=== PATIENT | female | born 1975 | race Caucasian/White ===

== ENCOUNTER → 2016-10-31 | Outpatient (CLI) | payer OTHER ==
[~2016-10-31] MED LIST: /HCTZ25TA PO; /MESA40TAB PO; ACET25TA8 PO; BUDE3CAP PO; CIPR500T89 PO; COLA50CA3 PO; DULO30CA PO; ENOX40IN3 SC; FAMO20TA PO; FLAG500T PO; FLINCHW5 PO; HUMI40KI2 SC; HYDR1TAB97 PO; IBUP600T26 PO; INFL10VL IV; LINZ145C PO; LISI20TA3 PO; LYRI75CA PO; METO50TA2 PO; MULTCAP PO; NORC5TAB PO; NUCY150T PO; OMEP40CA2 PO; PRED20TA PO; PRIL40CA PO; PRIN10TA PO; ROPI0.5T PO; SIME180C PO; SOMA350T PO; TYLE325T5 PO; VICO5TAB PO; VICO5TAB16 PO; VITA250L PO; calcium with D OR; nucynta OR; omeprazole OR; vitamin B12 OR
--- NOTE | 2016-11-13 02:08 | ECWPNPC ---
PATIENT NAME: MELY KESSLER : 1975 GENDER: FEMALE VISIT DATE: 10/31/2016 DISCHARGE DATE: 10/31/16 1543 VISIT LOCKED DATE TIME: PHYSICIAN: ILDEFONSO CORONADO RESOURCE: ILDEFONSO CORONADO REASON FOR APPOINTMENT 1. FOLLOWUP HISTORY OF PRESENT ILLNESS HISTORY OF PRESENT ILLNESS: PAIN THE PATIENT DESCRIBES THE PAIN... THE PATIENT DESCRIBES THE PAIN... THE PATIENT DESCRIBES THE PAIN... THE PATIENT DESCRIBES THE PAIN... THE PATIENT DESCRIBES THE PAIN... HERE FOR F/U OF CHRONIC GENERALIZED BACK PAIN.HX OF CERVICAL FUSION WITH DR. MARTINEZ ON .REPORTS SIGNIFICANT REDUCTION IN LEFT ARM AND NECK PAIN.THEY ARE EVALUATING LOW BACK AND SENDING HER TO ORTHOPEDIC MD FOR LEFT KNEE PAIN.REPORTING SEVERE ONSET OF LEFT LBP RADIATES INTO LEFT BUTTOCK PAST 7 DAYS.DIFFICULTY SITTING ON LEFT BUTTOCK.GETTING IN AND OUT OF CAR AGGREVATES PAIN. DISCUSSED MEDICINE AND TREATMENT OPTIONS. 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 FALL RISK SCREENING: SCREENING :NO FALLS IN THE PAST YEAR CURRENT MEDICATIONS TAKING REMICADE 100 MG SOLUTION RECONSTITUTED INTRAVENOUS EVER 8 WEEKS TAKING OMEPRAZOLE 20 MG CAPSULE DELAYED RELEASE 1 TAB ORALLY ONCE A DAY TAKING MULTI-VITAMIN/IRON TABLET ORALLY TAKING VITAMIN B 12 250 MCG LOZENGE ORALLY TAKING CALCIUM 600 MG TABLET 1 TABLET WITH MEALS ORALLY TWICE A DAY TAKING TYLENOL 325 MG TABLET 1 TABLET NEEDED ORALLY EVERY 6 HRS TAKING NUCYNTA ER 100 MG TABLET EXTENDED RELEASE 12 HOUR 1 CAP(S) ORALLY BIDMDD2 TAKING NORCO 5-325 MG TABLET 1 ORALLY [id number] TAKING ROPINIROLE HCL 0.5 MG TABLET 1PO 2HOURS PRIOR TO BED ORALLY ONCE A DAY TAKING CYCLOBENZAPRINE HCL 10 MG TABLET 1 TABLET ORALLY THREE TIMES A DAY NOT-TAKING VICODIN 5-500 MG TABLET 1 TABLET NEEDED ORALLY EVERY 6 HRS NOT-TAKING HUMIRA PEN 40 MG/0.8ML KIT 0.8 SUBCUTANEOUS NOT-TAKING LYRICA 75 MG CAPSULE 1 CAPSULE ORALLY TWICE A DAY NOT-TAKING MOTRIN IB 200 MG TABLET 1 TABLET NEEDED ORALLY EVERY 6 HRS NOT-TAKING LEVAQUIN 500 MG TABLET 1 TABLET ORALLY ONCE A DAY MEDICATION LIST REVIEWED AND RECONCILED WITH THE PATIENT ALLERGIES PENICILLIN (FOR ALLERGIES USE ONLY): HIVES: SIDE EFFECTS AMOXICILLIN: HIVES: SIDE EFFECTS CECLOR: SWELLING: SIDE EFFECTS KEFLEX: VOMITING: SIDE EFFECTS TETRACYCLINE HCL: HIVES: SIDE EFFECTS SOCIAL HISTORY GENERAL: TOBACCO USE ARE YOU A:NONSMOKER LEARNING BARRIERS / SPECIAL NEEDS ORIENTED TO PLAN OF CARE: PATIENT, PAIN MANAGEMENT PATIENT, ORIENTED TO PLAN OF CARE: PATIENT, PAIN MANAGEMENT PATIENT. NEW PATIENT PAIN DIARY TODAY'S VISITNOTES FROM 0-10, WHAT LEVEL IS YOUR PAIN TODAY?0 PAIN CLINIC PFS, CLERGY, PUBLIC HEALTH REFERRALS PFS REFERRAL NEEDED?NO CLERGY REFERRAL NEEDED?NO PUBLIC HEALTH REFERRAL NEEDED?NO WAS THE PROVIDER NOTIFIED OF ANY PERTINENT INFO?NO PFS REFERRAL NEEDED?NO CLERGY REFERRAL NEEDED?NO PUBLIC HEALTH REFERRAL NEEDED?NO WAS THE PROVIDER NOTIFIED OF ANY PERTINENT INFO?NO REVIEW OF SYSTEMS CONSTITUTIONAL: ANY CHANGE IN YOUR MEDICAL CONDITION? NO . CHILLS NO . FEVER NO . INFECTION: DO YOU HAVE NEW INFECTIONS? NO . DO YOU HAVE HISTORY OF MRSA? NO . MUSCULOSKELETAL: ANY NEW PATTERNS OF PAIN OR NUMBNESS? YES-NEW LEFT HIP AND BUTTOCK AREA MUSCLE SPASM SHOOTING DOWN THE LEG . GASTROENTEROLOGY: ANY NEW CHANGE IN BOWEL CONTROL? NO . GENITOURINARY: ANY NEW CHANGE IN BLADDER CONTROL? NO . IS THERE A CHANCE YOU COULD BE ? NO . HEMATOLOGY/LYMPH: DO YOU TAKE ANY BLOOD THINNERS? (FOR EXAMPLE- COUMADIN, PLAVIX, AGGRENOX, PLATEL, PRADAXA, OR XARELTO) NO . WHEN WAS YOUR LAST DOSE? DATE: TIME: . NEUROLOGY: HAVE YOU FALLEN IN THE PAST 6 MONTHS? NO . ANY NEW EXTREMITY NUMBNESS OR WEAKNESS? NO . CARDIOLOGY: DO YOU HAVE A PACEMAKER OR DEFIBRILLATOR? NO . RESPIRATORY: HAVE YOU BEEN SICK IN THE PAST WEEK? NO . FEVER NO . FLU LIKE SYMPTOMS? NO . COUGH NO . INTEGUMENTARY: DO YOU HAVE ANY RASHES OR OPEN SORES? NO . ALLERGIC/IMMUNO: ARE YOU ALLERGIC TO SHELLFISH OR IV DYE? NO . ANY NEW ALLERGIES? NO . PSYCHIATRIC: DO YOU HAVE THOUGHTS OF HURTING YOURSELF OR SOMEONE ELSE? NO . ARE YOU ABUSED, NEGLECTED, OR IN AN UNSAFE ENVIRONMENT? NO . ENDOCRINOLOGY: ARE YOU DIABETIC? NO . OTHER: DO YOU NEED ANY PRESCRIPTIONS? NO . IF YES, PLEASE LIST: ____ . ANY NEW PROBLEMS WITH YOUR MEDICATIONS? NO . WHEN DID YOU LAST EAT? ____ . WHEN DID YOU LAST DRINK? ____ . WHAT DID YOU LAST DRINK? ____ . NAME OF PERSON DRIVING YOU HOME? ____ . DO YOU HAVE ANY OTHER QUESTIONS OR CONCERNS NO . REVIEWED BY: PROVIDER: ILDEFONSO PORTILLO . VITAL SIGNS WT 160 LBS, HT 66 IN, BMI 25.82 INDEX, BP 149/84 MM HG, HR 73 /MIN, RR 16 /MIN, TEMP 96.0 F, OXYGEN SAT % 99, NA INITIALS TL 1451, REVIEWED BY: AM. EXAMINATION GENERAL EXAMINATION: LUNGS:LUNG SOUNDS ARE CLEAR. HEART:HEART RATE REGULAR. MUSCULOSKELETAL:*, MUSCLE STRENGTH TESTING 5/5 BILATERAL UPPER AND LOWER EXTREMITY., PALPATION: NEGATIVE FOR PAIN OVER L/S SPINE. SPECIFIC POINT TENDERNESS OVER LEFT SIJ.POSITIVE ANGELA TEST LEFT LEG.. DIAGNOSTIC: . 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 BRINGS IN MEDICATIONS WHICH IS APPROPRIATE FOR WHAT WAS DISPENSED. RECENT URINE TOXICOLOGY REVIEWED. NO UNAUTHORIZED MEDICATIONS. NO ILLICIT SUBSTANCES AND PRESCRIBED MEDICATIONS WERE PRESENT. , RISKS AND BENEFITS OF NARCOTIC/OPIOD MEDICATIONS WERE REVIEWED WITH PATIENT - THIS INCLUDES BUT IS NOT LIMITED TO RISK OF DEPENDANCE/DEVELOPMENT OF ADDICTION, MOOD DISTURBANCE AND DEPRESSION, OSTEOPOROSIS, HORMONAL AND LABIDAL CHANGES, RESPIRATORY DEPRESSION AND . PATIENT IS ADVISED NOT TO DRIVE WHILE ON THESE MEDICATIONS.URINE TOX TODAY. PROCEDURE CODES FA211 ESTABILISHED PATIENT [facility] FACILITY CHARGE FOLLOW UP 2WK POST PROC. (REASON: LEFT SIJ) ELECTRONICALLY SIGNED BY BANDAR BUSH ON 11/12/2016 AT 01:21 PM EST DISCLAIMER : THIS IS A VISIT SUMMARY EXTRACTED FROM THE [employer] CHART. IT IS NOT A COPY OF THE [employer] PROGRESS NOTE. ROSCOE
== END ==
LOC: M PAIN 15:00
PROVIDERS: ATTEND Nurse Practitioner Family
DX: Z09 Encounter for follow-up examination after completed treatment for conditions other than malignant neoplasm (principal); G89.29 Other chronic pain; M53.3 Sacrococcygeal disorders, not elsewhere classified; Z88.0 Allergy status to penicillin; Z88.8 Allergy status to other drugs, medicaments and biological substances; Z79.891 Long term (current) use of opiate analgesic; Z79.899 Other long term (current) drug therapy

== ENCOUNTER 2016-11-13 12:39 | Outpatient (CLI) | payer OTHER ==
[~2016-11-13] VITALS: Ht 170.2 cm; Wt 83.0 kg
[~2016-11-13 12:39] MED LIST changes: +HYDR-3713 PO; -HYDR1TAB97 PO; +diphenhydrAMINE 25 MG CAP PO SCH
[2016-11-13] MEDS ORDERED: NS 1,000 ML IV SCH (12:45)
[2016-11-13] MEDS ORDERED: inFLIXimab INJECTION 500 MG in NS 200 ML IV ONE (13:00)
== END 2016-11-13 15:45 | disposition home or self-care (01) ==
LOC: M INFU 12:39
PROVIDERS: ATTEND Internal Medicine Gastroenterology
DX: K50.10 Crohn's disease of large intestine without complications (principal); K50.00 Crohn's disease of small intestine without complications
CPT/HCPCS: 96413; 96415; J1745

== ENCOUNTER 2017-01-17 12:16 | Outpatient (CLI) | payer OTHER ==
[~2017-01-17] VITALS: Ht 170.2 cm; Wt 83.0 kg
[2017-01-17] MEDS ORDERED: NS 1,000 ML IV SCH (12:30)
[2017-01-17] MEDS ORDERED: inFLIXimab INJECTION 500 MG in NS 200 ML IV ONE (14:00)
== END 2017-01-17 15:15 | disposition home or self-care (01) ==
LOC: M INFU 12:16
PROVIDERS: ATTEND Internal Medicine Gastroenterology
DX: K50.80 Crohn's disease of both small and large intestine without complications (principal)
CPT/HCPCS: 96413; 96415; J1745

== ENCOUNTER → 2017-03-01 | Outpatient (CLI) | payer OTHER ==
[~2017-03-01] MED LIST changes: +NORC1TAB4 PO; -NORC5TAB PO; -diphenhydrAMINE 25 MG CAP PO SCH
--- NOTE | 2017-03-20 02:18 | ECWPNPC ---
PATIENT NAME: MELY KESSLER : 1975 GENDER: FEMALE VISIT DATE: 03/01/2017 DISCHARGE DATE: 03/01/17 1147 VISIT LOCKED DATE TIME: PHYSICIAN: ILDEFONSO CORONADO RESOURCE: ILDEFONSO CORONADO REASON FOR APPOINTMENT 1. NECK AND BACK HISTORY OF PRESENT ILLNESS HISTORY OF PRESENT ILLNESS: PAIN THE PATIENT DESCRIBES THE PAIN... THE PATIENT DESCRIBES THE PAIN... THE PATIENT DESCRIBES THE PAIN... THE PATIENT DESCRIBES THE PAIN... THE PATIENT DESCRIBES THE PAIN... THE PATIENT DESCRIBES THE PAIN... HERE FOR F/U OF CHRONIC GENERALIZED BACK PAIN.HX OF CERVICAL FUSION WITH DR. MARTINEZ ON .REPORTS SIGNIFICANT REDUCTION IN LEFT ARM AND NECK PAIN.HAD LEFT HIP REPLACEMENT November. RECIEVES REMICADE INFUSION EVERY 8 WEEKS FOR CROHNS DISEASE.REPORTS OVER 100#WEIGHT LOSS PAST YEAR AFTER BARIAC SURGEY .RATING PAIN VAS 6/10.COMPLAINING OF BURNING AXIAL PAIN THAT SEEMS TO BE WORSE LATELY.MOST RECENT MRI L/S SPINE 2012. FALL RISK SCREENING: SCREENING :NO FALLS IN THE PAST YEAR CURRENT MEDICATIONS TAKING REMICADE 100 MG SOLUTION RECONSTITUTED INTRAVENOUS EVER 8 WEEKS TAKING OMEPRAZOLE 20 MG CAPSULE DELAYED RELEASE 1 TAB ORALLY ONCE A DAY TAKING MULTI-VITAMIN/IRON TABLET ORALLY TAKING VITAMIN B 12 250 MCG LOZENGE ORALLY TAKING CALCIUM 600 MG TABLET 2 TABLET WITH MEALS ORALLY TWICE A DAY TAKING TYLENOL 325 MG TABLET 1 TABLET NEEDED ORALLY EVERY 6 HRS TAKING ROPINIROLE HCL 0.5 MG TABLET 1PO 2HOURS PRIOR TO BED ORALLY BEFORE BEDTIME TAKING NORCO 5-325 MG TABLET 1 ORALLY [id number] TAKING NUCYNTA ER 100 MG TABLET EXTENDED RELEASE 12 HOUR 1 CAP(S) ORALLY BIDMDD2 NOT-TAKING CYCLOBENZAPRINE HCL 10 MG TABLET 1 TABLET ORALLY THREE TIMES A DAY NOT-TAKING VICODIN 5-500 MG TABLET 1 TABLET NEEDED ORALLY EVERY 6 HRS NOT-TAKING HUMIRA PEN 40 MG/0.8ML KIT 0.8 SUBCUTANEOUS NOT-TAKING LYRICA 75 MG CAPSULE 1 CAPSULE ORALLY TWICE A DAY NOT-TAKING MOTRIN IB 200 MG TABLET 1 TABLET NEEDED ORALLY EVERY 6 HRS NOT-TAKING LEVAQUIN 500 MG TABLET 1 TABLET ORALLY ONCE A DAY MEDICATION LIST REVIEWED AND RECONCILED WITH THE PATIENT PAST MEDICAL HISTORY CHRONES ARTHRITIS ALLERGIES PENICILLIN (FOR ALLERGIES USE ONLY): HIVES: SIDE EFFECTS AMOXICILLIN: HIVES: SIDE EFFECTS CECLOR: SWELLING: SIDE EFFECTS KEFLEX: VOMITING: SIDE EFFECTS TETRACYCLINE HCL: HIVES: SIDE EFFECTS SURGICAL HISTORY TONSILECTOMY TUBAL LIGATION GASTRIC BYPASS CERVICAL FUSION JUL 2016 LEFT HIP REPLACEMENT NOV 2016 HOSPITALIZATION/MAJOR DIAGNOSTIC PROCEDURE SEE ABOVE REVIEW OF SYSTEMS CONSTITUTIONAL: ANY CHANGE IN YOUR MEDICAL CONDITION? YES. LEFT HIP REPLACEMENT NOV 2016 . CHILLS NO . FEVER NO . INFECTION: DO YOU HAVE NEW INFECTIONS? NO . DO YOU HAVE HISTORY OF MRSA? NO . MUSCULOSKELETAL: ANY NEW PATTERNS OF PAIN OR NUMBNESS? YES, RIGHT HAND. LEFT LOWER LEG . GASTROENTEROLOGY: ANY NEW CHANGE IN BOWEL CONTROL? NO . GENITOURINARY: ANY NEW CHANGE IN BLADDER CONTROL? NO . IS THERE A CHANCE YOU COULD BE ? NO . HEMATOLOGY/LYMPH: DO YOU TAKE ANY BLOOD THINNERS? (FOR EXAMPLE- COUMADIN, PLAVIX, AGGRENOX, PLATEL, PRADAXA, OR XARELTO) NO . WHEN WAS YOUR LAST DOSE? DATE: TIME: . NEUROLOGY: HAVE YOU FALLEN IN THE PAST 6 MONTHS? NO . ANY NEW EXTREMITY NUMBNESS OR WEAKNESS? NO . CARDIOLOGY: DO YOU HAVE A PACEMAKER OR DEFIBRILLATOR? NO . RESPIRATORY: HAVE YOU BEEN SICK IN THE PAST WEEK? NO . FEVER NO . FLU LIKE SYMPTOMS? NO . COUGH NO . INTEGUMENTARY: DO YOU HAVE ANY RASHES OR OPEN SORES? NO . ALLERGIC/IMMUNO: ARE YOU ALLERGIC TO SHELLFISH OR IV DYE? NO . ANY NEW ALLERGIES? NO . PSYCHIATRIC: DO YOU HAVE THOUGHTS OF HURTING YOURSELF OR SOMEONE ELSE? NO . ARE YOU ABUSED, NEGLECTED, OR IN AN UNSAFE ENVIRONMENT? NO . ENDOCRINOLOGY: ARE YOU DIABETIC? NO . OTHER: DO YOU NEED ANY PRESCRIPTIONS? YES . IF YES, PLEASE LIST: HYDROCODONE 03/09/17 AND NUCYNTA 03/14/17 . ANY NEW PROBLEMS WITH YOUR MEDICATIONS? NO . WHEN DID YOU LAST EAT? ____ . WHEN DID YOU LAST DRINK? ____ . WHAT DID YOU LAST DRINK? ____ . NAME OF PERSON DRIVING YOU HOME? ____ . DO YOU HAVE ANY OTHER QUESTIONS OR CONCERNS NO . REVIEWED BY: PROVIDER: ILDEFONSO PORTILLO . VITAL SIGNS WT 167 LBS, HT 66 IN, BMI 26.95 INDEX, BP 116/76 MM HG, HR 92 /MIN, RR 18 /MIN, TEMP 98.8 F, OXYGEN SAT % 97, REVIEWED BY: NL. EXAMINATION GENERAL EXAMINATION: LUNGS:LUNG SOUNDS ARE CLEAR. HEART:HEART RATE REGULAR. MUSCULOSKELETAL:*, MUSCLE STRENGTH TESTING 5/5 BILATERAL UPPER AND LOWER EXTREMITY., PALPATION: POSITIVE FOR PAIN OVER L/S SPINE.POSITIVE FOR PAIN OVER PARASPINALS . DIAGNOSTIC: . 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 WITHOUT [id number] DISPOSITION & COMMUNICATION FOLLOW UP 4 WEEKS ELECTRONICALLY SIGNED BY BANDAR BUSH ON 03/19/2017 AT 04:46 PM EDT DISCLAIMER : THIS IS A VISIT SUMMARY EXTRACTED FROM THE [employer] CHART. IT IS NOT A COPY OF THE [employer] PROGRESS NOTE. ROSCOE
== END | disposition home or self-care (01) ==
LOC: M PAIN 11:00
PROVIDERS: ATTEND Nurse Practitioner Family
DX: G89.29 Other chronic pain (principal); M19.90 Unspecified osteoarthritis, unspecified site; K50.90 Crohn's disease, unspecified, without complications; Z98.84 Bariatric surgery status; Z79.899 Other long term (current) drug therapy; Z88.0 Allergy status to penicillin; Z88.1 Allergy status to other antibiotic agents

== ENCOUNTER → 2017-04-01 | Outpatient (CLI) | payer OTHER ==
--- NOTE | 2017-04-02 01:22 | ECWPNPC ---
PATIENT NAME: MELY KESSLER : 1975 GENDER: FEMALE VISIT DATE: 04/01/2017 DISCHARGE DATE: 04/01/17 1153 VISIT LOCKED DATE TIME: PHYSICIAN: ILDEFONSO CORONADO RESOURCE: ILDEFONSO CORONADO REASON FOR APPOINTMENT 1. BACK HISTORY OF PRESENT ILLNESS HISTORY OF PRESENT ILLNESS: PAIN THE PATIENT DESCRIBES THE PAIN... THE PATIENT DESCRIBES THE PAIN... THE PATIENT DESCRIBES THE PAIN... THE PATIENT DESCRIBES THE PAIN... THE PATIENT DESCRIBES THE PAIN... THE PATIENT DESCRIBES THE PAIN... THE PATIENT DESCRIBES THE PAIN... HERE FOR F/U OF CHRONIC GENERALIZED BACK PAIN.HX OF CERVICAL FUSION WITH DR. MARTINEZ ON .REPORTS SIGNIFICANT REDUCTION IN LEFT ARM AND NECK PAIN.HAD LEFT HIP REPLACEMENT November. RECIEVES REMICADE INFUSION EVERY 8 WEEKS FOR CROHNS DISEASE.REPORTS OVER 100#WEIGHT LOSS PAST YEAR AFTER BARIAC SURGEY .RATING PAIN VAS 6/10.COMPLAINING OF BURNING AXIAL PAIN THAT SEEMS TO BE WORSE LATELY.MOST RECENT MRI L/S SPINE 2012.I HAD ORDERED MRI L/S SPINE AT HER LAST VISIT BUT SHE HASNT HAD THAT DONE YET.REPORTING INCREASE IN ARM PAIN AND PARATHESIAS PAST 2 WEEKS SHE HAS BEEN MOVING AND OVERDOING. FALL RISK SCREENING: SCREENING :NO FALLS IN THE PAST YEAR CURRENT MEDICATIONS TAKING REMICADE 100 MG SOLUTION RECONSTITUTED INTRAVENOUS EVER 8 WEEKS TAKING OMEPRAZOLE 20 MG CAPSULE DELAYED RELEASE 1 TAB ORALLY ONCE A DAY TAKING MULTI-VITAMIN/IRON TABLET ORALLY TAKING VITAMIN B 12 250 MCG LOZENGE ORALLY TAKING CALCIUM 600 MG TABLET 2 TABLET WITH MEALS ORALLY TWICE A DAY TAKING TYLENOL 325 MG TABLET 1 TABLET NEEDED ORALLY EVERY 6 HRS TAKING ROPINIROLE HCL 0.5 MG TABLET 1PO 2HOURS PRIOR TO BED ORALLY BEFORE BEDTIME TAKING NORCO 5-325 MG TABLET 1 ORALLY [id number] TAKING NUCYNTA ER 100 MG TABLET EXTENDED RELEASE 12 HOUR 1 CAP(S) ORALLY BIDMDD2 NOT-TAKING CYCLOBENZAPRINE HCL 10 MG TABLET 1 TABLET ORALLY THREE TIMES A DAY NOT-TAKING VICODIN 5-500 MG TABLET 1 TABLET NEEDED ORALLY EVERY 6 HRS NOT-TAKING HUMIRA PEN 40 MG/0.8ML KIT 0.8 SUBCUTANEOUS NOT-TAKING LYRICA 75 MG CAPSULE 1 CAPSULE ORALLY TWICE A DAY NOT-TAKING MOTRIN IB 200 MG TABLET 1 TABLET NEEDED ORALLY EVERY 6 HRS NOT-TAKING LEVAQUIN 500 MG TABLET 1 TABLET ORALLY ONCE A DAY MEDICATION LIST REVIEWED AND RECONCILED WITH THE PATIENT PAST MEDICAL HISTORY CHRONES ARTHRITIS ALLERGIES PENICILLIN (FOR ALLERGIES USE ONLY): HIVES: SIDE EFFECTS AMOXICILLIN: HIVES: SIDE EFFECTS CECLOR: SWELLING: SIDE EFFECTS KEFLEX: VOMITING: SIDE EFFECTS TETRACYCLINE HCL: HIVES: SIDE EFFECTS SURGICAL HISTORY TONSILECTOMY TUBAL LIGATION GASTRIC BYPASS CERVICAL FUSION JUL 2016 LEFT HIP REPLACEMENT NOV 2016 HOSPITALIZATION/MAJOR DIAGNOSTIC PROCEDURE SEE ABOVE REVIEW OF SYSTEMS CONSTITUTIONAL: ANY CHANGE IN YOUR MEDICAL CONDITION? NO . CHILLS NO . FEVER NO . INFECTION: DO YOU HAVE NEW INFECTIONS? NO . DO YOU HAVE HISTORY OF MRSA? NO . MUSCULOSKELETAL: ANY NEW PATTERNS OF PAIN OR NUMBNESS? YES, PT STATES SHE IS MOVING, NUMBNESS IN ARMS IS WORSE . GASTROENTEROLOGY: ANY NEW CHANGE IN BOWEL CONTROL? NO . GENITOURINARY: ANY NEW CHANGE IN BLADDER CONTROL? NO . IS THERE A CHANCE YOU COULD BE ? NO . HEMATOLOGY/LYMPH: DO YOU TAKE ANY BLOOD THINNERS? (FOR EXAMPLE- COUMADIN, PLAVIX, AGGRENOX, PLATEL, PRADAXA, OR XARELTO) NO . WHEN WAS YOUR LAST DOSE? DATE: TIME: . NEUROLOGY: HAVE YOU FALLEN IN THE PAST 6 MONTHS? NO . ANY NEW EXTREMITY NUMBNESS OR WEAKNESS? NO . CARDIOLOGY: DO YOU HAVE A PACEMAKER OR DEFIBRILLATOR? NO . RESPIRATORY: HAVE YOU BEEN SICK IN THE PAST WEEK? YES, ALLERGY RELATED . FEVER NO . FLU LIKE SYMPTOMS? NO . COUGH NO . INTEGUMENTARY: DO YOU HAVE ANY RASHES OR OPEN SORES? NO . ALLERGIC/IMMUNO: ARE YOU ALLERGIC TO SHELLFISH OR IV DYE? NO . ANY NEW ALLERGIES? NO . PSYCHIATRIC: DO YOU HAVE THOUGHTS OF HURTING YOURSELF OR SOMEONE ELSE? NO . ARE YOU ABUSED, NEGLECTED, OR IN AN UNSAFE ENVIRONMENT? NO . ENDOCRINOLOGY: ARE YOU DIABETIC? NO . OTHER: DO YOU NEED ANY PRESCRIPTIONS? YES, OXYCODONE, NUCYNTA . IF YES, PLEASE LIST: ____ . ANY NEW PROBLEMS WITH YOUR MEDICATIONS? NO . WHEN DID YOU LAST EAT? ____ . WHEN DID YOU LAST DRINK? ____ . WHAT DID YOU LAST DRINK? ____ . NAME OF PERSON DRIVING YOU HOME? ____ . DO YOU HAVE ANY OTHER QUESTIONS OR CONCERNS NO . REVIEWED BY: PROVIDER: ILDEFONSO PORTILLO . VITAL SIGNS WT 171 LBS, HT 66 IN, BMI 27.60 INDEX, BP 116/66 MM HG, HR 72 /MIN, RR 18 /MIN, TEMP 98.5 F, OXYGEN SAT % 97, SAFE IN ENV? (Y/N) Y, REVIEWED BY: [id number]. EXAMINATION GENERAL EXAMINATION: LUNGS:LUNG SOUNDS ARE CLEAR. HEART:HEART RATE REGULAR. MUSCULOSKELETAL:*, MUSCLE STRENGTH TESTING 5/5 BILATERAL UPPER AND LOWER EXTREMITY., PALPATION: POSITIVE FOR PAIN OVER L/S SPINE.POSITIVE FOR PAIN OVER PARASPINALS . DIAGNOSTIC: . ASSESSMENTS LUMBAGO DUE TO DISPLACEMENT OF INTERVERTEBRAL DISC - M51.26 (PRIMARY) ARTHROPATHY - M12.9 TREATMENT LUMBAGO DUE TO DISPLACEMENT OF INTERVERTEBRAL DISC CONTINUE ROPINIROLE HCL TABLET, 0.5 MG, 1PO 2HOURS PRIOR TO BED, ORALLY, BEFORE BEDTIME REFILL NORCO TABLET, 5-325 MG, 1, ORALLY, [id number], 30 DAY(S), 90, REFILLS 0 REFILL NUCYNTA ER TABLET EXTENDED RELEASE 12 HOUR, 100 MG, 1 CAP(S), ORALLY, BIDMDD2, 30 DAY(S), 60, REFILLS 0 SMC MRI SPINE, L.S. WITHOUT [id number] NOTES: ISTOP REGISTRY REVIEWED AND DEMNOSTRATES COMPLLIANCE. BRINGS IN MEDICATIONS WHICH IS APPROPRIATE FOR WHAT WAS DISPENSED. RECENT URINE TOXICOLOGY REVIEWED. NO UNAUTHORIZED MEDICATIONS. NO ILLICIT SUBSTANCES AND PRESCRIBED MEDICATIONS WERE PRESENT. , RISKS AND BENEFITS OF NARCOTIC/OPIOD MEDICATIONS WERE REVIEWED WITH PATIENT - THIS INCLUDES BUT IS NOT LIMITED TO RISK OF DEPENDANCE/DEVELOPMENT OF ADDICTION, MOOD DISTURBANCE AND DEPRESSION, OSTEOPOROSIS, HORMONAL AND LABIDAL CHANGES, RESPIRATORY DEPRESSION AND . PATIENT IS ADVISED NOT TO DRIVE WHILE ON THESE MEDICATIONS. PROCEDURE CODES FA211 ESTABILISHED PATIENT [facility] FACILITY CHARGE DISPOSITION & COMMUNICATION FOLLOW UP 2 MONTHS ELECTRONICALLY SIGNED BY BANDAR BUSH ON 04/01/2017 AT 05:30 PM EDT DISCLAIMER : THIS IS A VISIT SUMMARY EXTRACTED FROM THE [employer] CHART. IT IS NOT A COPY OF THE [employer] PROGRESS NOTE. ROSCOE
== END ==
LOC: M PAIN 11:00
PROVIDERS: ATTEND Nurse Practitioner Family
DX: G89.29 Other chronic pain (principal); M51.26 Other intervertebral disc displacement, lumbar region; M12.9 Arthropathy, unspecified; Z98.1 Arthrodesis status; Z96.642 Presence of left artificial hip joint; K50.90 Crohn's disease, unspecified, without complications; Z98.84 Bariatric surgery status; Z88.0 Allergy status to penicillin; Z88.1 Allergy status to other antibiotic agents; Z88.8 Allergy status to other drugs, medicaments and biological substances; Z79.891 Long term (current) use of opiate analgesic; Z79.899 Other long term (current) drug therapy

== ENCOUNTER 2017-05-09 10:00 | Outpatient (CLI) | payer OTHER ==
[~2017-05-09] VITALS: Ht 170.2 cm; Wt 73.0 kg
[~2017-05-09 10:00] MED LIST changes: -METO50TA2 PO; +METO50TA7 PO; +diphenhydrAMINE 25 MG CAP PO SCH
[2017-05-09] MEDS ORDERED: NS 1,000 ML IV SCH (10:15)
[2017-05-09] MEDS ORDERED: inFLIXimab INJECTION 400 MG in NS 210 ML IV ONE (10:15)
== END 2017-05-09 13:05 | disposition home or self-care (01) ==
LOC: M INFU 10:00
PROVIDERS: ATTEND Internal Medicine Gastroenterology
DX: K50.90 Crohn's disease, unspecified, without complications (principal); Z88.0 Allergy status to penicillin; Z88.1 Allergy status to other antibiotic agents; Z79.891 Long term (current) use of opiate analgesic; Z79.899 Other long term (current) drug therapy; Z98.84 Bariatric surgery status
CPT/HCPCS: 96413; 96415; J1745

== ENCOUNTER 2017-05-20 10:43 | Outpatient (CLI) | payer OTHER ==
[~2017-05-20 10:43] MED LIST changes: -IRON65TA PO; -NUCY50TA6 PO; +diphenhydrAMINE 25 MG CAP PO SCH
[2017-05-20] MEDS ORDERED: NS 1,000 ML IV SCH (11:00)
[2017-05-20] MEDS ORDERED: inFLIXimab INJECTION 400 MG in NS 210 ML IV ONE (11:00)
== END 2017-05-20 13:30 | disposition home or self-care (01) ==
LOC: M INFU 10:43
PROVIDERS: ATTEND Internal Medicine Gastroenterology
DX: K50.90 Crohn's disease, unspecified, without complications (principal); Z79.891 Long term (current) use of opiate analgesic; Z79.899 Other long term (current) drug therapy; Z98.84 Bariatric surgery status; Z88.0 Allergy status to penicillin; Z88.1 Allergy status to other antibiotic agents; M51.26 Other intervertebral disc displacement, lumbar region
CPT/HCPCS: 72148; 96413; 96415; J1745

== ENCOUNTER → 2017-05-20 | Outpatient (CLI) | payer OTHER ==
[~2017-05-20] MED LIST changes: +IRON65TA PO; +NUCY50TA6 PO; -diphenhydrAMINE 25 MG CAP PO SCH
--- NOTE | 2017-05-20 16:35 | REP ---
REASON: Back pain with left lower extremity radicular symptoms. COMPARISON EXAMINATION: 08/24/2013 There is posterior disc space height loss and disc hydrational signal loss L3-4 to L5-S1 inclusive, increased slightly from the prior exam. The remainder of the disc spaces are well hydrated and of normal appearing height. The marrow signal is again seen to be within normal limits. There is no abnormal signal seen in the imaged portion of the spinal cord. Vertebral body height and alignment is again seen to be within normal limits. The L1-2 level. There is no change from the prior exam. There is no disc herniation or foraminal narrowing or central canal stenosis. Mild degenerative facet joint changes are seen bilaterally, status quo. At the L2-3 level there is no change. There is no disc herniation, foraminal narrowing or central canal stenosis. Mild degenerative facet joint changes are again seen bilaterally status quo. At the L3-4 level there is a broad based annular bulge with a tiny central focal subligamentous disc protrusion and a midline posterior annular rent. This is essentially unchanged. No acute disc extrusion has developed, however, the broad based bulge does cause a mild concave anterior deformity of the anterior thecal sac, possible increased slightly from the prior exam There is no foraminal stenosis or gerardo acute disc extrusion. Degenerative facet joint changes were seen again bilaterally with thickening of the ligamenta flava and the factors in concert cause mild central canal stenosis possibly increased slightly from the prior exam. At the L4-5 level there is a large asymmetric broad based annular bulge which has increased in size from the prior exam. This broad based annular bulge is seen in conjunction with a central focal subligamentous disc protrusion which causes a concave anterior deformity of the anterior thecal sac which has increased from the prior exam. Degenerative facet joint changes are seen bilaterally with thickening of the ligamentum flava and the factors in concert are causing moderate central canal stenosis which has increased from the prior exam. There is no evidence of an acute disc extrusion or gerardo foraminal narrowing. At the L5-S1 level. There is a broad based annular bulge seen in conjunction with an unchanged central disc extrusion with slight inferior migration of the extruded disc material status quo. Degenerative facet joint changes are again seen bilaterally with thickening of the ligamentum flava and the factors in concert are causing mild central canal stenosis status quo. There is also evidence of mild right foraminal stenosis without evidence of L5 foraminal nerve compression. IMPRESSION: Multilevel discogenic changes and other findings as described above. Signed by Ahmet Santiago DO 05/20/2017 07:09 P
== END ==
LOC: M RAD 14:14
PROVIDERS: ATTEND Nurse Practitioner Family
DX: M51.26 Other intervertebral disc displacement, lumbar region (principal)

== ENCOUNTER 2017-06-11 12:00 | Outpatient (CLI) | payer OTHER ==
[~2017-06-11] VITALS: Ht 170.2 cm; Wt 73.0 kg
[2017-06-11] MEDS ORDERED: inFLIXimab INJECTION 400 MG in NS 210 ML IV ONE (13:00)
[2017-06-11] MEDS ORDERED: NS 1,000 ML IV SCH (13:00)
[2017-06-11] MEDS ORDERED: IRON65TA PO (14:47)
[2017-06-11] MEDS ORDERED: NUCY50TA6 PO (14:47)
== END 2017-06-11 15:00 | disposition home or self-care (01) ==
LOC: M INFU 12:00
PROVIDERS: ATTEND Internal Medicine Gastroenterology
DX: K50.80 Crohn's disease of both small and large intestine without complications (principal); Z88.0 Allergy status to penicillin; Z88.1 Allergy status to other antibiotic agents; Z79.899 Other long term (current) drug therapy
CPT/HCPCS: 96413; 96415; J1745

== ENCOUNTER → 2017-07-10 | Outpatient (CLI) | payer OTHER ==
[~2017-07-10] MED LIST changes: +IRON65TA PO; +NUCY50TA6 PO; -diphenhydrAMINE 25 MG CAP PO SCH
--- NOTE | 2017-07-21 23:36 | ECWPNPC ---
PATIENT NAME: MELY KESSLER : 1975 GENDER: FEMALE VISIT DATE: 07/10/2017 DISCHARGE DATE: 07/10/17 1407 VISIT LOCKED DATE TIME: PHYSICIAN: ILDEFONSO CORONADO RESOURCE: ILDEFONSO CORONADO REASON FOR APPOINTMENT 1. BACK AND NECK HISTORY OF PRESENT ILLNESS HISTORY OF PRESENT ILLNESS: PAIN THE PATIENT DESCRIBES THE PAIN... THE PATIENT DESCRIBES THE PAIN... THE PATIENT DESCRIBES THE PAIN... THE PATIENT DESCRIBES THE PAIN... THE PATIENT DESCRIBES THE PAIN... THE PATIENT DESCRIBES THE PAIN... THE PATIENT DESCRIBES THE PAIN... THE PATIENT DESCRIBES THE PAIN... PAIN THE PATIENT DESCRIBES THE PAIN... THE PATIENT DESCRIBES THE PAIN... THE PATIENT DESCRIBES THE PAIN... THE PATIENT DESCRIBES THE PAIN... THE PATIENT DESCRIBES THE PAIN... THE PATIENT DESCRIBES THE PAIN... THE PATIENT DESCRIBES THE PAIN... THE PATIENT DESCRIBES THE PAIN... HERE FOR F/U OF CHRONIC GENERALIZED BACK PAIN.HX OF CERVICAL FUSION WITH DR. MARTINEZ ON .REPORTS SIGNIFICANT REDUCTION IN LEFT ARM AND NECK PAIN.HAD LEFT HIP REPLACEMENT November. RECIEVES REMICADE INFUSION EVERY 8 WEEKS FOR CROHNS DISEASE.REPORTS OVER 100#WEIGHT LOSS PAST YEAR AFTER BARIAC SURGEY .RATING PAIN VAS 6/10.COMPLAINING OF BURNING AXIAL PAIN THAT SEEMS TO BE WORSE LATELY.MOST RECENT MRI L/S SPINE 2012.I HAD ORDERED MRI L/S SPINE AT HER LAST VISIT BUT SHE HASNT HAD THAT DONE YET.REPORTING INCREASE IN ARM PAIN AND PARATHESIAS PAST 2 WEEKS SHE HAS BEEN MOVING AND OVERDOING. FALL RISK SCREENING: SCREENING :NO FALLS IN THE PAST YEAR CURRENT MEDICATIONS TAKING REMICADE 100 MG SOLUTION RECONSTITUTED INTRAVENOUS EVER 8 WEEKS TAKING OMEPRAZOLE 20 MG CAPSULE DELAYED RELEASE 1 TAB ORALLY ONCE A DAY TAKING MULTI-VITAMIN/IRON TABLET ORALLY TAKING VITAMIN B 12 250 MCG LOZENGE ORALLY TAKING CALCIUM 600 MG TABLET 2 TABLET WITH MEALS ORALLY TWICE A DAY TAKING TYLENOL 325 MG TABLET 1 TABLET NEEDED ORALLY EVERY 6 HRS TAKING ROPINIROLE HCL 0.5 MG TABLET 1PO 2HOURS PRIOR TO BED ORALLY BEFORE BEDTIME TAKING NUCYNTA ER 100 MG TABLET EXTENDED RELEASE 12 HOUR 1 CAP(S) ORALLY BIDMDD2 TAKING NORCO 5-325 MG TABLET 1 ORALLY [id number] NOT-TAKING CYCLOBENZAPRINE HCL 10 MG TABLET 1 TABLET ORALLY THREE TIMES A DAY NOT-TAKING VICODIN 5-500 MG TABLET 1 TABLET NEEDED ORALLY EVERY 6 HRS NOT-TAKING HUMIRA PEN 40 MG/0.8ML KIT 0.8 SUBCUTANEOUS NOT-TAKING LYRICA 75 MG CAPSULE 1 CAPSULE ORALLY TWICE A DAY NOT-TAKING MOTRIN IB 200 MG TABLET 1 TABLET NEEDED ORALLY EVERY 6 HRS NOT-TAKING LEVAQUIN 500 MG TABLET 1 TABLET ORALLY ONCE A DAY MEDICATION LIST REVIEWED AND RECONCILED WITH THE PATIENT PAST MEDICAL HISTORY CHRONES ARTHRITIS ALLERGIES PENICILLIN (FOR ALLERGIES USE ONLY): HIVES: SIDE EFFECTS AMOXICILLIN: HIVES: SIDE EFFECTS CECLOR: SWELLING: SIDE EFFECTS KEFLEX: VOMITING: SIDE EFFECTS TETRACYCLINE HCL: HIVES: SIDE EFFECTS SURGICAL HISTORY TONSILECTOMY TUBAL LIGATION GASTRIC BYPASS CERVICAL FUSION JUL 2016 LEFT HIP REPLACEMENT NOV 2016 HOSPITALIZATION/MAJOR DIAGNOSTIC PROCEDURE SEE ABOVE REVIEW OF SYSTEMS REVIEWED BY: PROVIDER: ILDEFONSO PORTILLO . CONSTITUTIONAL: ANY CHANGE IN YOUR MEDICAL CONDITION? NO . CHILLS NO . FEVER NO . INFECTION: DO YOU HAVE NEW INFECTIONS? NO . DO YOU HAVE HISTORY OF MRSA? NO . MUSCULOSKELETAL: ANY NEW PATTERNS OF PAIN OR NUMBNESS? NO . GASTROENTEROLOGY: ANY NEW CHANGE IN BOWEL CONTROL? NO . GENITOURINARY: ANY NEW CHANGE IN BLADDER CONTROL? NO . IS THERE A CHANCE YOU COULD BE ? NO . HEMATOLOGY/LYMPH: DO YOU TAKE ANY BLOOD THINNERS? (FOR EXAMPLE- COUMADIN, PLAVIX, AGGRENOX, PLATEL, PRADAXA, OR XARELTO) NO . WHEN WAS YOUR LAST DOSE? DATE: TIME: . NEUROLOGY: HAVE YOU FALLEN IN THE PAST 6 MONTHS? NO . ANY NEW EXTREMITY NUMBNESS OR WEAKNESS? NO . CARDIOLOGY: DO YOU HAVE A PACEMAKER OR DEFIBRILLATOR? NO . RESPIRATORY: HAVE YOU BEEN SICK IN THE PAST WEEK? NO . FEVER NO . FLU LIKE SYMPTOMS? NO . COUGH NO . INTEGUMENTARY: DO YOU HAVE ANY RASHES OR OPEN SORES? NO . ALLERGIC/IMMUNO: ARE YOU ALLERGIC TO SHELLFISH OR IV DYE? NO . ANY NEW ALLERGIES? NO . PSYCHIATRIC: DO YOU HAVE THOUGHTS OF HURTING YOURSELF OR SOMEONE ELSE? NO . ARE YOU ABUSED, NEGLECTED, OR IN AN UNSAFE ENVIRONMENT? NO . ENDOCRINOLOGY: ARE YOU DIABETIC? NO . OTHER: DO YOU NEED ANY PRESCRIPTIONS? YES, NUCYNTA, HYDROCODONE . IF YES, PLEASE LIST: ____ . ANY NEW PROBLEMS WITH YOUR MEDICATIONS? NO . WHEN DID YOU LAST EAT? ____ . WHEN DID YOU LAST DRINK? ____ . WHAT DID YOU LAST DRINK? ____ . NAME OF PERSON DRIVING YOU HOME? ____ . DO YOU HAVE ANY OTHER QUESTIONS OR CONCERNS NO . VITAL SIGNS WT 174 LBS, HT 66 IN, BMI 28.08 INDEX, BP 127/83 MM HG, HR 89 /MIN, RR 18 /MIN, TEMP 97.8 F, OXYGEN SAT % 100, REVIEWED BY: EM. EXAMINATION GENERAL EXAMINATION: LUNGS:LUNG SOUNDS ARE CLEAR. HEART:HEART RATE REGULAR. MUSCULOSKELETAL:*, MUSCLE STRENGTH TESTING 5/5 BILATERAL UPPER AND LOWER EXTREMITY., PALPATION: POSITIVE FOR PAIN OVER L/S SPINE.POSITIVE FOR PAIN OVER PARASPINALS . DIAGNOSTIC:MRI L/S SPINE [id number] PATIENT. ASSESSMENTS LUMBAGO DUE TO DISPLACEMENT OF INTERVERTEBRAL DISC - M51.26 (PRIMARY) ARTHROPATHY - M12.9 CHRONIC PRESCRIPTION OPIATE USE - Z79.891 TREATMENT LUMBAGO DUE TO DISPLACEMENT OF INTERVERTEBRAL DISC REFILL ROPINIROLE HCL TABLET, 0.5 MG, 1PO 2HOURS PRIOR TO BED, ORALLY, BEFORE BEDTIME, 30 DAY(S), 30, REFILLS 2 REFILL NUCYNTA ER TABLET EXTENDED RELEASE 12 HOUR, 100 MG, 1 CAP(S), ORALLY, BIDMDD2, 30 DAY(S), 60, REFILLS 0 REFILL NORCO TABLET, 5-325 MG, 1, ORALLY, [id number], 30 DAY(S), 90, REFILLS 0 PROCEDURE CODES FA211 ESTABILISHED PATIENT [facility] CHARGE DISPOSITION & COMMUNICATION FOLLOW UP 2 MONTHS ELECTRONICALLY SIGNED BY BANDAR BUSH ON 07/21/2017 AT 06:29 PM EDT DISCLAIMER : THIS IS A VISIT SUMMARY EXTRACTED FROM THE [employer] CHART. IT IS NOT A COPY OF THE [employer] PROGRESS NOTE. [place]
== END ==
LOC: M PAIN 13:30
PROVIDERS: ATTEND Nurse Practitioner Family
DX: G89.29 Other chronic pain (principal); M51.26 Other intervertebral disc displacement, lumbar region; M12.9 Arthropathy, unspecified; K50.919 Crohn's disease, unspecified, with unspecified complications; Z88.0 Allergy status to penicillin; Z88.1 Allergy status to other antibiotic agents; Z88.8 Allergy status to other drugs, medicaments and biological substances; Z79.891 Long term (current) use of opiate analgesic; Z79.899 Other long term (current) drug therapy

== ENCOUNTER 2017-08-22 11:55 | Outpatient (CLI) | payer OTHER ==
[2017-08-22] MEDS ORDERED: NS 1,000 ML IV SCH (12:15)
[2017-08-22] MEDS ORDERED: ACETAMINOPHEN TAB 650MG DOSE (2X325MG) PO ONE (12:15)
[2017-08-22] MEDS ORDERED: INFLIXIMAB BIOSIMILAR 400 MG in NS 210 ML IV ONE (12:15)
[2017-08-22] MEDS ORDERED: diphenhydrAMINE 25 MG CAP PO ONE (12:15)
== END 2017-08-22 14:45 | disposition home or self-care (01) ==
LOC: M INFU 11:55
PROVIDERS: ATTEND Internal Medicine Gastroenterology
DX: K50.90 Crohn's disease, unspecified, without complications (principal); I10 Essential (primary) hypertension; E78.00 Pure hypercholesterolemia, unspecified; Z79.891 Long term (current) use of opiate analgesic; Z79.899 Other long term (current) drug therapy; Z88.0 Allergy status to penicillin; Z88.1 Allergy status to other antibiotic agents; Z88.8 Allergy status to other drugs, medicaments and biological substances
CPT/HCPCS: 96413; 96415; Q5102

== ENCOUNTER → 2017-09-11 | Outpatient (CLI) | payer OTHER ==
--- NOTE | 2017-09-11 12:20 | REPMRS ---
Patient History The patient states she has not had a clinical breast exam in over a year. Family history of colorectal cancer in maternal grandfather at age 50 or over and breast cancer in maternal grandmother at age 50 or over. Took unspecified hormones for 12 years. Digital Woman Screen Mammo: September 11, 2017 - Exam #: [id number] Bilateral CC and MLO view(s) were taken. Technologist: Charity Ramirez, Technologist Prior study comparison: February 10, 2014, bilateral bilat screen digital mammo, performed at [facility] ([facility]). October 04, 2008, left breast digital mammo diagnostic unilateral, performed at [facility]. FINDINGS: The breast tissue is heterogeneously dense. This may lower the sensitivity of mammography. There has been no change in the appearance of the mammogram from the prior studies. There is a moderate amount of residual fibroglandular tissue which is fairly symmetric. There is no interval development of dominant mass, areas of architectural distortion, or clustered microcalcification typical of malignancy. ASSESSMENT: BI-RADS/ACR category 1 mammogram. Negative. Recommendation Routine screening mammogram in 1 year (for women over age 40). This mammogram was interpreted with the aid of an FDA-approved computer-aided dectection system. Electronically Signed By: Torey Markham MD 09/11/17 [id number]
== END ==
LOC: M WHC 11:22
PROVIDERS: ATTEND Internal Medicine
DX: Z12.31 Encounter for screening mammogram for malignant neoplasm of breast (principal)

== ENCOUNTER 2017-10-16 12:08 | Outpatient (CLI) | payer OTHER ==
[2017-10-16] MEDS ORDERED: diphenhydrAMINE 25 MG CAP PO ONE (12:30)
[2017-10-16] MEDS ORDERED: ACETAMINOPHEN TAB 650MG DOSE (2X325MG) PO ONE (12:30)
[2017-10-16] MEDS ORDERED: NS 1,000 ML IV SCH (12:30)
[2017-10-16] MEDS ORDERED: INFLIXIMAB BIOSIMILAR 400 MG in NS 210 ML IV ONE (13:00)
== END 2017-10-16 15:35 | disposition home or self-care (01) ==
LOC: M INFU 12:08
PROVIDERS: ATTEND Internal Medicine Gastroenterology
DX: K50.90 Crohn's disease, unspecified, without complications (principal); I10 Essential (primary) hypertension; Z79.891 Long term (current) use of opiate analgesic; Z79.899 Other long term (current) drug therapy; Z88.0 Allergy status to penicillin; Z88.1 Allergy status to other antibiotic agents
CPT/HCPCS: 96413; 96415; Q5102

== ENCOUNTER 2017-12-11 12:02 | Outpatient (CLI) | payer OTHER ==
[2017-12-11] MEDS: ACETAMINOPHEN TAB 650MG DOSE (2X325MG) PO (12:40)
[2017-12-11] MEDS: diphenhydrAMINE 25 MG CAP PO (12:41)
[2017-12-11] MEDS: INFLIXIMAB BIOSIMILAR 400 MG in NS 210 ML IV (12:57)
[2017-12-11] MEDS: NS 1,000 ML IV (12:57)
== END 2017-12-11 15:20 | disposition home or self-care (01) ==
LOC: M INFU 12:02
DX: K50.80 Crohn's disease of both small and large intestine without complications (principal); Z79.891 Long term (current) use of opiate analgesic; Z79.899 Other long term (current) drug therapy; Z88.0 Allergy status to penicillin; Z88.8 Allergy status to other drugs, medicaments and biological substances
CPT/HCPCS: Q5102

== ENCOUNTER → 2018-01-07 | Outpatient (CLI) | payer OTHER | LOC: M PAIN 13:30 | DX: M51.26 Other intervertebral disc displacement, lumbar region (principal); M07.60 Enteropathic arthropathies, unspecified site; K50.90 Crohn's disease, unspecified, without complications; Z79.891 Long term (current) use of opiate analgesic; Z79.899 Other long term (current) drug therapy; Z88.0 Allergy status to penicillin; Z88.8 Allergy status to other drugs, medicaments and biological substances | CPT/HCPCS: G0463 ==

== ENCOUNTER 2018-02-05 12:11 | Outpatient (CLI) | payer OTHER ==
[2018-02-05] MEDS: diphenhydrAMINE 25 MG CAP PO (12:32)
[2018-02-05] MEDS: ACETAMINOPHEN TAB 650MG DOSE (2X325MG) PO (12:32)
[2018-02-05] MEDS: INFLIXIMAB BIOSIMILAR 400 MG in NS 210 ML IV (12:59)
[2018-02-05] MEDS: NS 1,000 ML IV (13:00)
== END 2018-02-05 15:15 | disposition home or self-care (01) ==
LOC: M INFU 12:11
DX: K50.90 Crohn's disease, unspecified, without complications (principal); Z88.0 Allergy status to penicillin; Z88.1 Allergy status to other antibiotic agents; Z79.891 Long term (current) use of opiate analgesic; Z79.899 Other long term (current) drug therapy
CPT/HCPCS: Q5103